=== PATIENT | female | born 1995 | race Caucasian/White ===

== ENCOUNTER 2022-03-06 03:42 | Emergency (ER) | payer MEDICAID ==
[~2022-03-06] VITALS: Ht 167.6 cm; Wt 88.0 kg
[2022-03-06 04:18] VITALS: BP 113/80
[2022-03-06] MEDS ORDERED: OXYMETAZOLINE HCL NASAL SPRAY 15ML BOTHNSTRLS SCH (09:00)
== END 2022-03-06 07:04 | disposition home or self-care (01) ==
LOC: ER 03:42
DX: R04.0 Epistaxis (principal); F10.129 Alcohol abuse with intoxication, unspecified; Y90.9 Presence of alcohol in blood, level not specified; G92.9 Unspecified toxic encephalopathy; I10 Essential (primary) hypertension
CPT/HCPCS: 99282